=== PATIENT | male | born 1985 | race Caucasian/White ===

== ENCOUNTER 2018-02-03 18:14 | Emergency (ER) | payer OTHER ==
[2018-02-03 18:26] VITALS: BP 152/83; PULSE 72; RESP 20; TEMP 97.8; O2SAT 100
[2018-02-03] MEDS ORDERED: LIDOCAINE 1% W/EPI MPF 30 ML SOL INFIL ONE (18:27)
[2018-02-03] MEDS ORDERED: TDAP VACCINE 0.5 ML SUS IM ONE ×2 (18:28→19:01)
[2018-02-03] MEDS ORDERED: LIDOCAINE 1% W/EPI MPF 30 ML SOL ONE (18:30)
== END 2018-02-03 19:14 | disposition home or self-care (01) | DRG 605 ==
LOC: ED 18:14
DX: S01.452A Open bite of left cheek and temporomandibular area, initial encounter (principal); S01.551A Open bite of lip, initial encounter; W54.0XXA Bitten by dog, initial encounter
CPT/HCPCS: 12011; 90471; 90715; 99284; G0168